=== PATIENT | female | born 1955 | race Caucasian/White ===

== ENCOUNTER 2023-11-27 16:56 | Inpatient (IN) | payer OTHER, SELFPAY ==
[2023-11-26 18:25] VITALS: BP 166/95
[2023-11-26 18:44] LABS: % Basophils 1.3 % (0-2); % Eosinophils 5.4 % (0-6); % Immature Granulocytes 0.2 % (0-0.5); % Lymphocytes 30.3 % (20.5-51.1); % Monocytes 9.9 % (1.7-9.3); % Neutrophils 52.9 % (42.2-75.2); Absolute Basophils 0.1 10^3/uL (0-0.2); Absolute Eosinophils 0.4 10^3/uL (0-0.7); Absolute Lymphocytes 2.5 10^3/uL (1.2-3.4); Absolute Monocytes 0.8 10^3/uL (0.1-0.6); Absolute Neutrophils 4.3 10^3/uL (1.4-6.5); Hematocrit 39.4 % (37.0-47.0); Hemoglobin 14.2 g/dL (12.0-16.0); Mean Corpuscular Hgb 32.9 pg (27.0-31.0); Mean Corpuscular Volume 91.4 fL (81.0-99.0); Mean Platelet Volume 9.7 fL (7.4-10.4); Nucleated Red Blood Cells % 0 %; Platelet Count 245 10^3/uL (130-400); Red Blood Cell Count 4.31 10^6/uL (4.20-5.40); Red Cell Dist. Width 12.6 % (11.5-14.5); White Blood Cell Count 8.2 10^3/uL (4.8-10.8)
[2023-11-26 18:57] LABS: ALT (SGPT) 25 U/L (0-35); AST (SGOT) 29 U/L (14-36); Albumin 4.3 g/dl (3.5-5.0); Alkaline Phosphatase 77 U/L (38-126); Blood Urea Nitrogen 31 mg/dl (7-17); Calcium 9.5 mg/dl (8.4-10.2); Carbon Dioxide 22 mmol/L (22-30); Chloride 104 mmol/L (98-107); Glucose 116 mg/dl (70-99); Sodium 137 mmol/L (135-145); Total Bilirubin 0.6 mg/dl (0.2-1.3); Total Protein 7.1 g/dl (6.3-8.2); eGFR > 60.00
[2023-11-26 19:08] VITALS: BP 161/92
[2023-11-26 19:10] VITALS: BP 161/92
[2023-11-26 19:11] VITALS: BMI 26.4
--- NOTE | 2023-11-26 19:42 | ED.GENMED ---
History of Present Illness
General
Chief Complaint: Headache
Source: patient
Exam Limitations: none
Time Seen by Provider: 11/26/23 19:16
Travel History
Have you had any contact with someone who has COVID-19?: No
Do you have any symptoms of coronavirus? Fever > 100 degrees, chills, cough, shortness of breath, sore throat, loss of taste or smell, muscle aches, or headache?: No
History of Present Illness
History of Present Illness:
This is a 68 year old female that comes in with c/o headache and left sided neck pain. State that she has an appointment with the PCP next . State that for the past couple of weeks she has been waking up with a headache and pain on the left
side of the neck. State that the neck feels stiff. Daughter states that she feels she is just not herself. States that this seemed to have started after she had her Oberon tooth removed on the left. State that she was on antibiotics but did not
finish them as she was fine. States that she vomited only once and has slight Dizziness. State that about 2-3 in the afternoon her legs just started to feel weak. Denies any fever, chills, chest pain, SOB, abd pain, nausea, diarrhea, headache at
this time, or urinary burning.
Past History
Past History
ED Past Medical History: Cancer (Ovarian ) and HTN
ED Past Surgical History: Gynecological (Hysterectomy)
Social History
Tobacco: Smoker
Alcohol: Occasional
Personal:
Living: with family
Review of Systems
Review of Systems
All Other Systems: ROS reviewed and negative except as documented in HPI and ROS
Constitutional: Reports no symptoms
EENT: Reports no symptoms
Respiratory: Reports no symptoms; Denies cough or trouble breathing
Cardiac: Reports no symptoms; Denies chest pain
ABD/GI: Reports no symptoms; Denies abdominal pain, nausea, vomiting or diarrhea
: Reports no symptoms; Denies dysuria, frequency or urgency
Musculoskeletal: Reports neck pain (left sided)
Skin: Reports no symptoms
Neurological: Reports dizzy (occasional) and headache (when she wakes up in the morning)
Psychiatric: Reports no symptoms
Phy Exam
General Physical Exam
General Presentation: well appearing (High energy) and no apparent distress
General age: appears stated age
General Skin: warm and dry
General Habitus: normal
General Mental: alert
General Hydration: appears well hydrated
ENT Exam
ENT Exam: TM's normal, pharynx normal and neck supple
Eye Exam
Eye Exam: EOMI
Cardiovascular Exam
Cardiovascular Exam: regular rate/rhythm, no edema, no murmur and normal peripheral pulses
Pulmonary Exam
Pulmonary Exam: lungs clear, no respiratory distress, no rales, chest non tender, no crackles, no rhonchi, no wheezing and no cough
Gastrointestinal Exam
Gastrointestinal Exam: normal bowel sounds, non tender, soft, no organomegaly, no pulsatile mass and non distended
NIH Stroke Score
Level of Consciousness: 0 - Alert
LOC questions: 0-Answers both correctly
LOC Commands: 0-Performs both correctly
Best Gaze: 0-Normal
Visual Roe: 0=Normal, no visual loss
Facial palsy: 0=Normal, symmetrical
Motor - Right Arm: 0=No drift 10 seconds
Motor - Left Arm: 0=No drift 10 seconds
Motor - Right Le-No drift 5 seconds
Motor - Left Le-No drift 5 seconds
Limb Ataxia: 0-Absent
Sensation: 0-Normal
Best Language: 0-No aphasia
Dysarthria: 0-Normal
Extinction and Inattention: 0-No abnormality
Total Score:: 0
Musculoskeletal Exam
Musculoskeletal Exam: full ROM, neck pain (Left lateral to spine tenderness of the trapezius muscle, Muscle tightness, Able to tough chin to chest) and no edema
Skin Exam
Skin Exam: normal color, warm/dry, no rash and no petechia
Psychiatric Exam
Psychiatric Exam: normal mood/affect
Course
Orders/Labs/Results
Orders:
Orders
11/26/23 18:34
CMP [Comprehensive Metabolic Panel] Urgent
Complete Blood Count/With Diff Urgent
TSH Reflex To Free T4 Urgent
Comment: ADD ON
11/26/23 19:40
CT Cervical Spine W/o Iv Contr Urgent
Comment:
Reason For Exam: left sided neck pain
Dexamethasone Sod Phosphate [Decadron] 20 mg IV NOW STA
11/26/23 19:41
CT Head W/o Iv Contrast Urgent
Comment:
Reason For Exam: headache
11/26/23 19:46
Add On- LAB Urgent
Tests Added?: TSH with reflex free T4
11/26/23 19:51
Electrocardiogram (*1) Urgent
Reason for Study: Fatigue / Weakness
EKG- Treatment ONCE
Abnormal Lab Results
11/26/23
18:34
MCH 32.9 H pg
(27.0-31.0)
Absolute Monos (auto) 0.8 H 10^3/uL
(0.1-0.6)
Monocytes % 9.9 H %
(1.7-9.3)
BUN 31 H mg/dl
(7-17)
Glucose 116 H mg/dl
(70-99)
11/26/23 18:34
11/26/23 18:34
Dehydration. Glucose nonfasting.
Vital Signs
Initial and Last Documented VS:
Initial Vital Signs
Temp Pulse Resp BP Pulse Ox
98.4 F 86 18 166/95 100
11/26/23 18:25 11/26/23 18:25 11/26/23 18:25 11/26/23 18:25 11/26/23 18:25
Last Documented Vital Signs
Temp Pulse Resp BP Pulse Ox
97.9 F 88 20 132/92 98
11/27/23 01:05 11/27/23 01:05 11/27/23 01:05 11/27/23 01:05 11/27/23 01:05
MDM/Problems Addressed
Differential Diagnosis Includes:
cervical neck muscle spasm.
MDM/Problems Addressed:
This is a 68 year old female that comes in with c/o waking up in the morning with a headache and left sided neck pain. States that this has been going on for 1-2 weeks since she had her Oberon tooth removed. States that she takes a pain pill for the
headache and it goes away. Then about 2-3 in the afternoon she feels that her legs get weak and daughter feels that she is just not herself.
Will check labs. CT head and neck.
Back into see patient and daughter. Explained that there is a mass on the CT scan with some edema. Will need to transfer patient. Patient has an excepting Physcian at [facility]. Will make arrangement for transfer.
Chronic conditions affecting care:
NA
Acute Exacerbation and/or Progression of Chronic Illness:
NA
*Radiology
Radiology exam reviewed: radiology read reviewed (Cervical spine-No evidence of acute injury of the cervical spine. Less than grade 1 anterolisthesis of C4on C5. CT head- Findings most suggestive of a right cerebellar mass causing edema and mass
as described above. Subacute infarct cannot be completely excluded but seems less likely. )
*Pulse Oximetry
Patient hypoxic: no
*EKG
Interpreted by ED Provider?: Yes
Heart Rate: 78
Rate: normal
Rhythm: sinus
[place]: normal axis
Interval: normal interval
QRS Pattern: normal QRS
Ischemia: T-wave inversion (II, III, aVF, V1, V2, V3, V4, V5, V6, Checked by Dr. Sierra)
*Closer On Interpretation
Rate: normal
Heart Rate: 86
Rhythm: sinus
*Critical Care Note
Total Time (30-74mins, 75-104mins- exclusive of procedures): Not Applicable
ED Attending Note
-
Portions of this chart may have been created with voice recognition software.� Occasional wrong word or��sound alike� substitutions may have occurred due to the inherent limitations of voice recognition software.
Discharge Plan
Departure
Patient Disposition: Acute Care Hospital
Date of Disposition: 11/26/23
Time of Disposition: 22:34
Patient with high blood pressure during this ER visit?: No
Condition: Good
Covid-19: Not Applicable
Discharge Problem:
Right Cerebellar mass, Headache
Prescriptions:
No Action
metoprolol tartrate
1 tab PO DAILY
Rx Instructions:
unsure
Referrals:
NONE,* [Family Provider] -
Hospital Transfer
Other hospital: [facility]
I certify that the patient requires transfer: Yes
Discussed case with accepting physician: DR. Grace Tang
Reason for transfer: higher level of care and specialties available
Interventions
Interventions:
*Risk Screen - Suicide Last Done: 11/26/23 19:12
*Neglect/Abuse Screening Last Done: 11/26/23 19:12
ED- Fall Risk Assessment Last Done: 11/26/23 19:12
*ED COVID-19 Vaccine History Last Done: 11/26/23 18:25
ED- Neurological Assessment Last Done: 11/26/23 19:12
[2023-11-26 20:29] VITALS: BP 127/78
[2023-11-26] MEDS: DECADRON 20 MG IV (20:30)
[2023-11-26 21:00] LABS: TSH Reflex To Free T4 0.98 uIU/ml (0.47-4.68)
[2023-11-26 22:38] VITALS: BP 157/100
[2023-11-27 00:40] VITALS: BP 146/93
[2023-11-27 01:05] VITALS: BP 132/92
[2023-11-27 08:37] VITALS: BP 99/50
[2023-11-27] MEDS: NICORETTE 2 MG PO (11:19)
--- NOTE | 2023-11-27 13:02 | ED.GENMED ---
History of Present Illness
General
Chief Complaint: Headache
Time Seen by Provider: 11/26/23 19:16
Travel History
Have you had any contact with someone who has COVID-19?: No
Do you have any symptoms of coronavirus? Fever > 100 degrees, chills, cough, shortness of breath, sore throat, loss of taste or smell, muscle aches, or headache?: No
History of Present Illness
History of Present Illness:
.
Past History
Past History
ED Past Medical History: Cancer (Ovarian ) and HTN
ED Past Surgical History: Gynecological (Hysterectomy)
Social History
Tobacco: Smoker
Alcohol: Occasional
Personal:
Living: with family
Phy Exam
Physical Exam
Physical Exam:
.
Course
Orders/Labs/Results
Orders:
Orders
11/26/23 18:34
CMP [Comprehensive Metabolic Panel] Urgent
Complete Blood Count/With Diff Urgent
TSH Reflex To Free T4 Urgent
Comment: ADD ON
11/26/23 19:40
CT Cervical Spine W/o Iv Contr Urgent
Comment:
Reason For Exam: left sided neck pain
Dexamethasone Sod Phosphate [Decadron] 20 mg IV NOW STA
11/26/23 19:41
CT Head W/o Iv Contrast Urgent
Comment:
Reason For Exam: headache
11/26/23 19:46
Add On- LAB Urgent
Tests Added?: TSH with reflex free T4
11/26/23 19:51
Electrocardiogram (*1) Urgent
Reason for Study: Fatigue / Weakness
EKG- Treatment ONCE
11/27/23 11:17
Nicotine Polacrilex [Nicorette] 2 mg .ROUTE .STK-MED ONE
Nicotine Polacrilex [Nicorette] 2 mg PO Q2HPRN PRN
11/27/23 14:00
Acetaminophen [Tylenol] 650 mg .ROUTE .STK-MED ONE
11/27/23 14:02
Acetaminophen [Tylenol] 650 mg PO NOW STA
11/27/23 Dinner
Regular
At Your Request: Full Participation
Does patient need a safe tray?: No
11/27/23 16:18
Admit/Transfer Patient As Directed
Co-Sign Provider:
Level of Care: Inpatient admission
Assign to:: Medical/Surgical
Physician / Group: [facility]/Hospitalist
Diagnosis: Brain Mass
Reason for Hospitalization: Brain Mass
Expected length of stay greater than two midnights?: Yes
ELOS- Estimated Length of Stay in days: 7
I certify the patient meets the requirements for IP care: Yes
11/27/23 16:20
Code Status As Directed
Resuscitation Status: Full Code
11/27/23 17:29
Acetaminophen [Tylenol] 650 mg PO Q4HPRN PRN
11/27/23 17:29
Consult Neurology [NEUROLOGY CONSULT] Routine
Consulting Provider: Riley Frost
Was physician already notified: Yes
Activity As Directed
Activity Level: Out of Bed-Early Mobility
Neurological Checks As Directed
Frequency: Per unit guidelines
Vital Signs As Directed
Frequency: Per unit guidelines
DX Deep Vein Thrombosis Video Routine
11/27/23 18:00
Dexamethasone Sod Phosphate [Decadron] 4 mg IV Q6H
11/27/23 20:00
Heparin 5,000 units SC Q12
11/27/23 21:08
Urinalysis Reflex To Culture Routine
Date Specimen was Collected: 11/27/23
Time Specimen was Collected: 21:04
11/28/23 05:47
Basic Metabolic Panel IN AM
Complete Blood Count/No Diff IN AM
Abnormal Lab Results
02/06/24
18:34
MCH 32.9 H pg
(27.0-31.0)
Absolute Monos (auto) 0.8 H 10^3/uL
(0.1-0.6)
Monocytes % 9.9 H %
(1.7-9.3)
BUN 31 H mg/dl
(7-17)
Glucose 116 H mg/dl
(70-99)
11/26/23 18:34
11/26/23 18:34
Vital Signs
Initial and Last Documented VS:
Initial Vital Signs
Temp Pulse Resp BP Pulse Ox
98.4 F 86 18 166/95 100
11/26/23 18:25 11/26/23 18:25 11/26/23 18:25 11/26/23 18:25 11/26/23 18:25
Last Documented Vital Signs
Temp Pulse Resp BP Pulse Ox
98.2 F 80 16 123/103 95
11/28/23 07:04 11/28/23 08:45 11/28/23 07:04 11/28/23 08:45 11/28/23 08:30
*Critical Care Note
Total Time (30-74mins, 75-104mins- exclusive of procedures): Not Applicable
Update Note
Update Note:
103 pm Pt waiting for bed at [facility], pt stable, eager to go home and wait there, I reinforced importance of staying and admission, etc. She is agreeable. Speech clear, awake alert.
ED Attending Note
-
Portions of this chart may have been created with voice recognition software.� Occasional wrong word or��sound alike� substitutions may have occurred due to the inherent limitations of voice recognition software.
Discharge Plan
Departure
Patient Disposition: [facility]
Date of Disposition: 11/26/23
Time of Disposition: 22:34
Patient with high blood pressure during this ER visit?: No
Condition: Good
Covid-19: Not Applicable
Discharge Problem:
Right Cerebellar mass, Headache
Hospital Transfer
Other hospital: [facility]
I certify that the patient requires transfer: Yes
Discussed case with accepting physician: DR. Grace Tang
Reason for transfer: higher level of care and specialties available
Interventions
Interventions:
*Risk Screen - Suicide Last Done: 11/26/23 19:12
*General Assessment Last Done: 11/27/23 17:24
*Neglect/Abuse Screening Last Done: 11/26/23 19:12
ED- Fall Risk Assessment Last Done: 11/26/23 19:12
*ED COVID-19 Vaccine History Last Done: 11/26/23 18:25
*Nursing Disposition Last Done: 11/27/23 17:24
ED- Neurological Assessment Last Done: 11/26/23 19:12
Discharge Date and Time
Discharge Date/Time: 11/27/23 17:26
[2023-11-27] MEDS: TYLENOL 650 MG PO (14:03)
[2023-11-27 17:12] VITALS: BP 125/82
--- NOTE | 2023-11-27 17:23 | EDRN ---
the pt is refusing to wear a gown, the pt wants to go outside and smoke a cigarette, provider at the bedside explainingg to the pt the smoking policy, paper report tubed up to the receiving unit by ER nurse
[2023-11-27 17:49] VITALS: BP 150/102
--- NOTE | 2023-11-27 18:13 | W.PN.HOSP.TC ---
Today's Communication/Plan
-
transfer to [facility] [place] pending bed available
Assessment / Plan
Assessment / Plan
Headache
progressively worsening past [address] scan: Findings most suggestive of a right cerebellar mass causing edema and mass as described above. Subacute infarct cannot be completely excluded but seems less likely.
when results obtained, [place] was contacted for potential transfer. Bed not available and awaiting. Call placed by me to transfer Center, , in front of dgt, Keira, and confirmed she is on the list for potential transfer,
potentially tomorrow
Hx of Ovarian [id number]
follow by Dr. Flores at [facility]
underwent KENDRA and tx with chemoRx
Cig smoker
P:Pt will be admitted pending bed available at [place]
full Code
situation reviewed with dgt
Anticipated Discharge: 24 - 48 hours
Subjective/Interval History
-
Date of Service: November 27, 2023
Pt presented with headache last evening and CT scan demonstrated findings consistent with rt cerebellar mass with edema. Pt has not had anything to eat and is hungry
Objective Data
-
Vital Signs:
Vital Signs
Temp Pulse Resp BP Pulse Ox
98.2 F 102 18 150/102 99
11/27/23 17:49 11/27/23 17:49 11/27/23 17:49 11/27/23 17:49 11/27/23 17:49
Review of Systems
-
History Source: Patient and Family (dgt Keira and Fidel, )
Constitutional: Denies Fever
EENT: Reports No Symptoms Reported
Respiratory: Reports No Symptoms
Cardiac: Reports No Symptoms
Abdomen/GI: Reports No Symptoms
Genitourinary: Reports No Symptoms
Musculoskeletal: Reports No Symptoms
Neuro: Reports Headache
Physical Exam
-
General: Well Developed, Well Nourished and No Apparent Distress
HEENT: Normocephalic, Atraumatic and Moist Mucous Membranes
Respiratory: Clear to Auscultation; Negative Wheezes, Rales or Rhonchi
Cardiac: Regular Rhythm and S1/S2
GI: Soft, Nontender and Nondistended
Musculoskeletal: No Clubbing, No Cyanosis and No Edema
Neuro: Awake, Alert and Oriented
[2023-11-27] MEDS: DECADRON 4 MG IV (18:14)
[2023-11-27] MEDS: NORVASC 5 MG PO (18:43)
[2023-11-27] MEDS: LOPRESSOR 25 MG PO (20:22)
[2023-11-27 21:04] LABS: Glucose - Point of Care 134 mg/dl (70-99)
[2023-11-27 21:14] LABS: Urine Albumin Negative (Neg - Trace); Urine Bilirubin Negative (Negative); Urine Character Clear (Clear); Urine Color Yellow; Urine Glucose Trace (Negative); Urine Ketone Negative (Negative); Urine Leukocyte Negative (Negative); Urine Nitrite Negative (Negative); Urine Occult Blood 1+ (Negative); Urine Specific Gravity 1.025 (<1.030); Urine Urobilinogen Negative (Neg - 1+)
[2023-11-27 21:22] LABS: Urine White Cell None Seen /HPF (0-5)
[2023-11-27 23:17] VITALS: BP 121/77
[2023-11-28] MEDS: DECADRON 4 MG IV ×3 (00:16→11:46)
[2023-11-28 06:23] LABS: Hematocrit 40.3 % (37.0-47.0); Hemoglobin 14.4 g/dL (12.0-16.0); Mean Corp Hgb Conc. 35.7 g/dL (33.0-37.0); Mean Corpuscular Hgb 32.7 pg (27.0-31.0); Mean Corpuscular Volume 91.4 fL (81.0-99.0); Mean Platelet Volume 10.5 fL (7.4-10.4); Platelet Count 286 10^3/uL (130-400); Red Blood Cell Count 4.41 10^6/uL (4.20-5.40); Red Cell Dist. Width 12.7 % (11.5-14.5); White Blood Cell Count 11.3 10^3/uL (4.8-10.8)
[2023-11-28 06:48] LABS: Blood Urea Nitrogen 21 mg/dl (7-17); Calcium 9.4 mg/dl (8.4-10.2); Carbon Dioxide 21 mmol/L (22-30); Chloride 107 mmol/L (98-107); Estimated Creatinine Clearance 76 ml/min; Glucose 132 mg/dl (70-99); Potassium 4.2 mmol/L (3.5-5.1); Sodium 136 mmol/L (135-145); eGFR > 60.00
[2023-11-28 07:04] VITALS: BP 123/103
[2023-11-28 07:14] LABS: Glucose - Point of Care 136 mg/dl (70-99)
--- NOTE | 2023-11-28 07:17 | CON.NEURO4 ---
Consultation - Neurology 4
-
CONSULTING PHYSICIAN: Landy Ocampo
REFERRING PHYSICIAN: Hospitalist
DICTATED BY: Landy Ocampo
DATE/TIME OF REQUEST: 11/28/23
DATE/TIME OF CONSULTATION: 11/28/23
Reason for Consultation: Right cerebellar lesion
History of Present Illness:
Patient is a right-handed 68-year-old womanwith history of previous ovarian cancer described as stage 4 by family presenting the hospital with generalized weakness, gait abnormality and 1 episode of vomiting, was found to have significant
abnormality on CT head concerning for neoplasm and was admitted and placed for transfer to [facility] for neurosurgical evaluation.
Patient reports she really has been doing quite well has not noticed any sudden or severe changes but has noticed a generalized weakness in the past couple of weeks and did have 1 episode of vomiting. She denies any headache or vertigo, no vision
changes to, dysarthria or dysphagia. She does not note any incoordination of the limbs or balance problems.
She had had a history of ovarian cancer and underwent total abdominal hysterectomy and chemotherapy and last scanning of the residual disease, her daughter had reported this as stage IV and my conversation with her.
Past Medical History: Ovarian cancer
Surgical History: Total Abdominal hysterectomy
Family History: Non-contributory
Social History: Patient lives with her and is has adult children, she has a constant pannus and has perfect pitch, no tobacco, social alcohol
Review of Symptoms:
Patient denies any fever, headache, chest pain, shortness of breath, GI or symptoms.
Physical Exam:
Well-appearing middle-aged woman well-dressed well-groomed no signs of head or neck trauma eyes are clear oropharynx is clear neck supple forage motion heart rate regular breathing unlabored abdomen soft nontender no lower extremity edema is seen
Neurologic Examination:
The patient is awake, alert and oriented x 3. She is able to follow commands and answer questions appropriately. There is no aphasia or dysarthria. On cranial nerve assessment, pupils are 3 mm bilateral, round and reactive to light and
accommodation. Visual reyes are full. Extraocular movements are intact. No abnormal nystagmus. Facial sensations are intact and bilaterally symmetrical, there is no facial asymmetry. Hearing is intact bilaterally to normal conversation volume.
Tongue palate and uvula are midline. Sternocleidomastoid strengths are full bilaterally. Motor strengths are 5/5 bilateral upper and lower extremities on medical research [place] scale. There is no drift or involuntary movement noted. Deep tendon
reflexes are 2+ bilateral upper and lower extremities and Babinski is absent bilaterally. Sensations of pain, touch, temperature and vibration are intact and bilaterally symmetrical. There was no extinction noted on double simultaneous stimulation.
No dysmetria or dysdiadochokinesia. Coordination is intact by finger to nose bilaterally. Can run and skip in the hallway. No ataxia
Neuro Imaging: CT head noncontrast with hypodensity in the right cerebellum with mass effect on the fourth ventricle there is no hydrocephalus there is no hemorrhage no infarcts are seen.
Impressions
1. Right cerebellar abnormalities presumed to be a neoplasm given subtle symptoms that indicate this is most likely been a slow process. An acute stroke to the cerebellum of the sides would almost certainly produce significant gait ataxia nausea
vomiting vertigo and probably right arm coordination. Not clear at this point on whether or not the lesion represents metastasis from previous ovarian cancer versus a primary brain neoplasm. At this time the patient is not showing hydrocephalus on
brain imaging but is at risk of this over the next couple of weeks as it seems she has begun to be symptomatic from this lesion.
2. History of ovarian cancer
3. Hypertension
Recommendations:
1. Agree with the steroids and the dosing continue dexamethasone 4 mg every 6 hours and monitor blood glucose
2. Goal normotension
3. Basic neurologic checks
4. Check MRI of the brain with and without contrast
5. Patient awaiting transfer to [facility] for neurosurgical evaluation, in the event that we are waiting days without ability for transfer would be reasonable to discharge the patient home, provided references for [facility] and the patient's daughter will begin making phone calls for urgent evaluation
6. Discussed neurologic signs and symptoms to watch for with the patient and her daugther
Discussed patient care with: Patient and her daughter, Dr Bowser
Allergies
-
Allergies
Allergy/AdvReac Type Severity Reaction Status Date / Time
No Known Allergies Allergy Verified 11/26/23 18:30
Home Medications
-
Home Medications
metoprolol tartrate 1 tab PO DAILY 11/26/23
Vital Signs / Labs
-
Vital Signs and Labs:
Temp Pulse Resp BP Pulse Ox
98.2 F 80 16 123/103 95
11/28/23 07:04 11/28/23 07:04 11/28/23 07:04 11/28/23 07:04 11/28/23 07:04
11/28/23 05:47
11/28/23 05:47
11/27/23 11/27/23 11/28/23
21:02 21:08 05:47
WBC 11.3 H
MCH 32.7 H
MPV 10.5 H
Carbon Dioxide 21 L
BUN 21 H
Creatinine 0.4 L
Glucose 132 H
Ur Occult Blood Reflex 1+ A
Urine RBC 3-6 A
Urine Glucose Trace A
POC Glucose 134 H
11/28/23
07:13
WBC
MCH
MPV
Carbon Dioxide
BUN
Creatinine
Glucose
Ur Occult Blood Reflex
Urine RBC
Urine Glucose
POC Glucose 136 H
[2023-11-28] MEDS: LOPRESSOR 25 MG PO (08:45)
[2023-11-28] MEDS: NORVASC 5 MG PO (08:46)
[2023-11-28 11:15] LABS: Glucose - Point of Care 127 mg/dl (70-99)
--- NOTE | 2023-11-28 14:01 | W.PN.HOSP.TC ---
Addendum entered and electronically signed by Jaren Bowser MD 11/28/23 16:18:
Medications successfully sent to pharmacy
Addendum entered and electronically signed by Jaren Bowser MD 11/28/23 15:23:
Called to floor by nurse. Dgt, Keira, has called [facility] and gotten an emergency appt for pt for tomorrow and thus will be signing out AMA
Will send Rx for BP meds to dgt's pharm
see dictated note
Original Note:
Today's Communication/Plan
-
continue current Tx, await call from [facility] [place] to transfer
Assessment / Plan
Assessment / Plan
Headache
progressively worsening past [address] scan: Findings most suggestive of a right cerebellar mass causing edema and mass as described above. Subacute infarct cannot be completely excluded but seems less likely.
when results obtained, [facility] was contacted for potential transfer. Bed not available and awaiting. Call placed by me to transfer Center, , 11/27, in front of calvinKeira, and confirmed she is on the list for potential transfer,
started on Decadron, glu remain okay 127-134 range
Hx of Ovarian [id number]
follow by Dr. Flores at [facility]
underwent KENDRA and tx with chemoRx
Essential HTN
Metoprolol 25 mg bid resumed (pt had been taking sporadically) and Norvas added
BP 121/77-123/103
will follow next 1-2 days, assuming she is still at and adjust accordingly
Cig smoker
P:Pt will be admitted pending bed available at [place]
full Code
situation reviewed with calvin and Dr. Ocampo
Anticipated Discharge: 24 - 48 hours
Subjective/Interval History
-
Date of Service: November 28, 2023
Awaiting bed available at [facility] [place]
Objective Data
-
Labs:
Laboratory Results
11/28/23
05:47
WBC 11.3 H
Hgb 14.4
Hct 40.3
Plt Count 286
Sodium 136
Potassium 4.2
Chloride 107
Carbon Dioxide 21 L
BUN 21 H
Creatinine 0.4 L
Glucose 132 H
Calcium 9.4
Vital Signs:
Vital Signs
Temp Pulse Resp BP Pulse Ox
98.2 F 80 16 123/103 95
11/28/23 07:04 11/28/23 08:45 11/28/23 07:04 11/28/23 08:45 11/28/23 08:30
I&O
11/27/23 11/28/23 11/29/23
06:59 06:59 06:59
Intake Total 480 / 480
Output Total 150 / 150
Balance 330 / 330
Review of Systems
-
History Source: Patient, Family (dgt Keira ) and Physician (reviewed with Dr. Ocampo with pt and family)
Constitutional: Denies Fever
EENT: Reports No Symptoms Reported
Respiratory: Reports No Symptoms
Cardiac: Reports No Symptoms
Abdomen/GI: Reports No Symptoms
Genitourinary: Reports No Symptoms
Musculoskeletal: Reports No Symptoms
Neuro: Reports Headache
Physical Exam
-
General: Well Developed, Well Nourished and No Apparent Distress
HEENT: Normocephalic, Atraumatic and Moist Mucous Membranes
Respiratory: Clear to Auscultation; Negative Wheezes, Rales or Rhonchi
Cardiac: Regular Rhythm and S1/S2
GI: Soft, Nontender and Nondistended
Musculoskeletal: No Clubbing, No Cyanosis and No Edema
Neuro: Awake, Alert, Oriented and No Motor Deficits
--- NOTE | 2023-11-28 14:37 | CM ---
Addendum entered by Clara Andrade 11/28/23 15:55:
Pt and her daughter requested patient leave hospital AMA
Original Note:
CM following re: d/c planning
Chart reviewed
CM met with the patient at bedside; IA completed
Pt reports she, her daughter and her two children reside in a [place] with no ISIDRA however there are 14 steps to the bed/bath
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
Pt has no past hx of VN/SNF and the only DME owned is a pair of crutches that belonged to her spouse
Pt has prescription coverage and rx's are filled at [facility] on [facility]
Pt PCP-Fanny Garsia and she's also closely followed at [facility]
Pt has been cleared medically for d/c and her daughter will transport her home at time of d/c
PLAN; d/c home no needs
--- NOTE | 2023-11-28 15:46 | PTCARENOTE ---
Received patient this am AAOx3. Pt anxious. OOB ambulating in room. Tolerated diet well. 1500 Pt and patients daughter requested for patient with sign out AMA. Dr. Bowser made aware. Pt seen my Dr. Bowser.
--- NOTE | 2023-11-28 16:14 | W.DS.TRANS ---
DC Summary - Security Systems Manager
-
Discharge Instructions:
Discharge Diagnosis/Procedures Brain Mass
Diet Regular
Activity No restrictions
Driving Restrictions No driving
Bathing Restrictions None
Instructions:
Stand-Alone Forms:
Changes to Home Medications: Yes
Discharge Medications:
DC Medications w/original date entered in [employer]
amlodipine 5 mg tablet 5 mg PO DAILY #30 tabs 11/28/23
dexamethasone 4 mg tablet 4 mg PO TID #30 tabs 11/28/23
metoprolol tartrate 25 mg tablet 25 mg PO BID #60 tabs 11/28/23
Home Medication Changes
all above are new
Pending Results: No
== END 2023-11-28 15:48 | disposition left against medical advice (07) | DRG 72 ==
LOC: 4 EAST ACU 16:56
PROVIDERS: ADMITTING PHYSICIAN Internal Medicine; EMERGENCY PHYSICIAN Emergency Medicine; OTHER PHYSICIAN Student in an Organized Health Care Education/Training Program
DX: G93.89 Other specified disorders of brain (principal); Z85.43 Personal history of malignant neoplasm of ovary; Z90.710 Acquired absence of both cervix and uterus; I10 Essential (primary) hypertension; F17.210 Nicotine dependence, cigarettes, uncomplicated
CPT/HCPCS: 70450; 72125; 80048; 80053; 81003; 81015; 82962; 84443; 85025; 85027; 93005